=== PATIENT | female | born 1950 | race Caucasian/White ===

== ENCOUNTER → 2018-02-26 | Outpatient (CLI) | payer OTHER ==
[~2018-02-26] MED LIST: ALBU8.5H8 INH; ATOR40TA78 PO; Amoxicillin PO; BECL10.62 INH; CHOL2000 PO; LEVO75TA5 PO; PEG4000S8 PO; RAMI2.5C2 PO; SITA100T PO
[2018-02-26 15:50] LABS: ALBUMIN 3.6 g/dL (3.4-5.0); ANION GAP 7 mmol/L (5-15); CALCIUM 9.1 mg/dL (8.5-10.1); CHLORIDE 104 mmol/L (98-107)
[2018-02-26 15:55] LABS: ALANINE AMINOTRANSFERASE 24 U/L (12-78); ALKALINE PHOSPHATASE 111 U/L (45-117); BILIRUBIN,TOTAL 0.7 mg/dL (0.2-1.0); CREATININE 0.77 mg/dL (0.55-1.02); TOTAL PROTEIN 7.7 g/dL (6.4-8.2)
== END | disposition home or self-care (01) ==
LOC: STAR 13:52
PROVIDERS: ATTEND Internal Medicine Gastroenterology
DX: Z01.818 Encounter for other preprocedural examination (principal); K57.30 Diverticulosis of large intestine without perforation or abscess without bleeding; J30.89 Other allergic rhinitis; Z86.010 Personal history of colon polyps
CPT/HCPCS: 36415; 80053; 93005

== ENCOUNTER 2018-03-07 06:35 | Day surgery (SDC) | payer OTHER ==
[~2018-03-07] VITALS: Ht 160 cm; Wt 131.2 kg
[2018-03-07] MEDS ORDERED: LACTATED RINGERS 1,000 ML IV SCH (07:23)
[2018-03-07 07:25] VITALS: BP 177/92
[2018-03-07] MEDS ORDERED: PROPOFOL 10 MG/ML, 20ML ONE (10:56)
[2018-03-07] MEDS ORDERED: PROPOFOL 10 MG/ML, 50ML ONE (10:56)
== END 2018-03-07 11:20 | disposition home or self-care (01) ==
LOC: OUT 06:35
PROVIDERS: ATTEND Internal Medicine Gastroenterology
DX: D12.3 Benign neoplasm of transverse colon (principal); D12.5 Benign neoplasm of sigmoid colon; K57.30 Diverticulosis of large intestine without perforation or abscess without bleeding; K64.8 Other hemorrhoids; J45.909 Unspecified asthma, uncomplicated; E11.9 Type 2 diabetes mellitus without complications; Z98.890 Other specified postprocedural states; Z86.010 Personal history of colon polyps; Z88.8 Allergy status to other drugs, medicaments and biological substances; Z91.09 Other allergy status, other than to drugs and biological substances; Z79.899 Other long term (current) drug therapy
CPT/HCPCS: 45385; 82962; 88305; J2704